=== PATIENT | male | born 1965 | race Caucasian/White ===

== ENCOUNTER 2024-07-04 23:01 | Emergency (ER) | payer OTHER ==
[2024-07-04 23:15] VITALS: BP 137/85
[2024-07-04] MEDS ORDERED: COZAAR50 MG PO (23:23)
[2024-07-04] MEDS ORDERED: CLOMIPHENE CITRATE PO (23:25)
[2024-07-04] MEDS ORDERED: OMEPRAZOLE DR40 MG PO (23:25)
[2024-07-04 23:30] VITALS: BP 129/74
[2024-07-04 23:45] VITALS: BP 124/73
[2024-07-05 00:01] VITALS: BP 116/65
[2024-07-05 00:15] VITALS: BP 123/65
[2024-07-05 00:25] VITALS: BP 123/65
== END 2024-07-05 00:25 | disposition home or self-care (01) | DRG 125 ==
LOC: ED 23:01
DX: H33.21 Serous retinal detachment, right eye (principal); I10 Essential (primary) hypertension